=== PATIENT | female | born 2000 | race Caucasian/White ===

== ENCOUNTER 2024-01-11 01:50 | Emergency (ER) | payer OTHER, SELFPAY ==
[2024-01-11 03:00] VITALS: BP 117/77
[2024-01-11 04:00] VITALS: BP 115/74
[2024-01-11 05:00] VITALS: BP 116/74
--- NOTE | 2024-01-11 05:06 | DOWNTIME ---
There was a [employer] Client Parking Supervisor Downtime on 01/11/2024 from 0111 to 01/11/2024 at 0405. Downtime documentation of patient's care, including medication administrations, has been reconciled in the electronic record per guidelines. Refer to the
patient's paper chart under the miscellaneous tab to see printed paper medication records and downtime forms.
--- NOTE | 2024-01-11 05:14 | ED.GENMED ---
History of Present Illness
General
Chief Complaint: Musculo-Skeletal Complaint
Source: patient
Exam Limitations: none
Nursing documentation reviewed up to this point in time: agreed with
History of Present Illness
History of Present Illness:
23-year-old female with no chronic medical issues presents for evaluation of left arm pain radiating to the shoulder and chest. Patient reports onset of symptoms while she was laying in bed tonight has been constant for the past 3-4 hours. She
says symptoms generally improving and almost gone but because of the duration she was concerned that this could be something serious like a heart attack. For this reason she came to the emergency be assessed. She denies any associated symptoms
including shortness of breath, nausea, vomiting, diaphoresis, dizziness. She says she was in her normal state of health prior to onset of symptoms. She says she has never had any similar symptoms in the past including exertional symptoms. She
denies any family history of early cardiac disease. She denies smoking, alcohol, drug use.
Review of Systems
Review of Systems
All Other Systems: ROS reviewed and negative except as documented in HPI and ROS
Constitutional: Denies fever or chills
Respiratory: Denies cough or trouble breathing
Cardiac: Reports chest pain; Denies palpitations
ABD/GI: Denies abdominal pain, nausea, vomiting or diarrhea
: Denies flank pain
Musculoskeletal: Denies neck pain or back pain
Neurological: Denies dizzy or headache
Phy Exam
Physical Exam
Physical Exam:
General: Awake, alert, oriented x3; anxious but no acute distress
Head: Normocephalic, atraumatic
Eyes: Conjunctiva normal, sclera anicteric
Throat: Airway intact, handling secretions
Neck: Trachea midline, supple without meningismus
Lungs: Clear to auscultation bilaterally, no wheezing, rales, rhonchi
Heart: Regular rate and rhythm, no murmurs, gallops, or rubs
Abd: Soft, non distended, nontender
Neuro: Cranial nerves grossly intact, speech fluid
Skin: no rash
Extremities: No edema in extremities, equal pulses in all extremities
Scores
Heart Failure Risk
Heart Failure Risk Score: Not Applicable
Heart Score for Chest Pain Patients
STEMI patient?: No
History: Slightly or Non-Suspicious
ECG: Normal
Age: </= 45 years
Risk Factors: No Risk Factors
Troponin: </= Normal Limit
Heart Score for Chest Pain Patients: 0
Heart Score Risk: 2.5% MACE over next 6 weeks
PERC Rule Criteria
Age <50 years: Yes
HR <100 bpm: Yes
Room air oxygen sat >94%: Yes
History of DVT or PE: No
Recent trauma or surgery: No
Hemoptysis: No
Exogenous estrogen: No
Clinical signs suggestive of DVT: No
: No
Considered low risk for PE: Yes
PERC Score: 0
PE can be excluded by PERC: Yes
Withdrawal Assessment of Alcohol
Withdrawal Assessment Completed?: Not applicable
Course
Orders/Labs/Results
Orders:
Orders
01/11/24
Electrocardiogram (*1) Stat
Reason for Study: Chest Pain
Comment: DONE
01/11/24 02:40
Complete Blood Count/With Diff Routine
Comprehensive Metabolic Panel Routine
HCG, Serum Qualitative Screen Routine
Troponin I Routine
01/11/24 05:07
CR Chest - 2 Views Urgent
Comment:
Reason For Exam: cp
Abnormal Lab Results
01/11/24
02:40
Absolute Neuts (auto) 6.7 H 10^3/uL
(1.4-6.5)
01/11/24 02:40
01/11/24 02:40
MDM/Problems Addressed
Differential Diagnosis Includes:
Costochondritis, cervical radiculopathy, GERD, anxiety; much less likely ACS; clinical picture not all consistent with emergent pathology such as pulmonary embolism or acute aortic syndrome and in my judgment no further testing indicated for these
diagnoses
MDM/Problems Addressed:
23-year-old female presents for evaluation of pain in the left arm radiating to the shoulder and left chest for the past few hours. Started while she was lying in bed and have generally improved almost to the point of resolution. Vital signs
normal here. Physical exam as above. Plan to place an IV check labs including CBC and CMP, troponin, hCG. Will check a chest x-ray. Check an EKG. Monitor closely reassess after the above. Offered Motrin but patient says symptoms have
essentially resolved and declined.
EKG shows no concerning changes, lab work reviewed and CBC and CMP unremarkable, troponin negative x 1 with consistent symptoms for hours this is sufficient to rule out acute [place]. Awaiting results of chest x-ray.
Chest x-ray reviewed by me no acute disease. Patient feeling better no symptoms. Reassuring vitals. Will discharge with primary care follow-up.
*Radiology
Radiology exam reviewed: preliminary read by ED provider
*Pulse Oximetry
Patient hypoxic: no
*EKG
Interpreted by ED Provider?: Yes
Heart Rate: 79
Rate: normal
Rhythm: sinus
Belden: normal axis
Interval: normal interval
QRS Pattern: normal QRS
Ischemia: no ischemia
*Critical Care Note
Total Time (30-74mins, 75-104mins- exclusive of procedures): Not Applicable
Data Reviewed
Source: patient
ED Attending Note
-
Portions of this chart may have been created with voice recognition software.� Occasional wrong word or��sound alike� substitutions may have occurred due to the inherent limitations of voice recognition software.
Discharge Plan
Departure
Patient Disposition: Home (Routine Discharge)
Date of Disposition: 01/11/24
Time of Disposition: 06:10
Patient with high blood pressure during this ER visit?: No
Discharge Problem:
Arm pain, Chest pain
Instructions: Chest Pain PCP Follow Up
Referrals:
Stephanie Arriola MD [Family Provider] - Call in 1-3 days for appt
Activity Restrictions/Additional Instructions:
Thank you for visiting the Emergency Department at [facility].
1. Please schedule a follow up appointment as directed. Call first thing tomorrow morning to make an appointment.
2. If indicated, please take your medications as instructed and indicated on discharge paperwork.
3. If any of your symptoms do not improve, or persist, or become more severe within 6-12 hours, please return to the emergency department for further care.
4. Please return to the emergency department if you develop a headache, neck pain/stiffness, fever greater than 100.4F, chest pain, shortness of breath, persistent nausea, vomiting, slurred speech, difficulty walking, numbness/tingling, weakness,
signs of infection or any other symptoms that are worrisome to you.
Please call [phone] if you have any questions.
[2024-01-11 05:21] LABS: % Basophils 0.4 % (0-2); % Eosinophils 0.9 % (0-6); % Immature Granulocytes 0.3 % (0-0.5); % Lymphocytes 24.8 % (20.5-51.1); % Monocytes 6.1 % (1.7-9.3); % Neutrophils 67.5 % (42.2-75.2); Absolute Eosinophils 0.1 10^3/uL (0-0.7); Absolute Lymphocytes 2.5 10^3/uL (1.2-3.4); Absolute Monocytes 0.6 10^3/uL (0.1-0.6); Absolute Neutrophils 6.7 10^3/uL (1.4-6.5); Hemoglobin 12.9 g/dL (12.0-16.0); Mean Corp Hgb Conc. 33.9 g/dL (33.0-37.0); Mean Corpuscular Volume 82.6 fL (81.0-99.0); Mean Platelet Volume 9.6 fL (7.4-10.4); Nucleated Red Blood Cells % 0 %; Platelet Count 351 10^3/uL (130-400); Red Cell Dist. Width 13.4 % (11.5-14.5)
[2024-01-11 05:26] LABS: ALT (SGPT) 17 U/L (0-35); AST (SGOT) 22 U/L (14-36); Albumin 4.6 g/dl (3.5-5.0); Alkaline Phosphatase 66 U/L (38-126); Blood Urea Nitrogen 13 mg/dl (7-17); Calcium 9.3 mg/dl (8.4-10.2); Carbon Dioxide 23 mmol/L (22-30); Chloride 106 mmol/L (98-107); Glucose 93 mg/dl (70-99); Potassium 3.8 mmol/L (3.5-5.1); Sodium 137 mmol/L (135-145); Total Bilirubin 0.5 mg/dl (0.2-1.3); Total Protein 7.1 g/dl (6.3-8.2); Troponin I < 0.012 ng/ml; eGFR > 60.00
[2024-01-11 05:27] LABS: HCG, Serum Qualitative Screen Negative
== END 2024-01-11 06:28 | disposition home or self-care (01) ==
LOC: EMR 01:50
PROVIDERS: EMERGENCY PHYSICIAN Emergency Medicine; FAMILY PHYSICIAN Emergency Medicine
DX: R07.89 Other chest pain (principal); M79.602 Pain in left arm
CPT/HCPCS: 99285; 71046; 80053; 84484; 84703; 85025; 93005

== ENCOUNTER 2024-03-20 23:03 | Emergency (ER) | payer OTHER, SELFPAY ==
[2024-03-20 23:07] VITALS: BP 135/89
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
[2024-03-20 23:49] LABS: % Basophils 0.4 % (0-2); % Eosinophils 0.8 % (0-6); % Immature Granulocytes 0.4 % (0-0.5); % Lymphocytes 26.7 % (20.5-51.1); % Monocytes 6.2 % (1.7-9.3); % Neutrophils 65.5 % (42.2-75.2); Absolute Eosinophils 0.1 10^3/uL (0-0.7); Absolute Lymphocytes 2.7 10^3/uL (1.2-3.4); Absolute Monocytes 0.6 10^3/uL (0.1-0.6); Absolute Neutrophils 6.7 10^3/uL (1.4-6.5); Hematocrit 36.4 % (37.0-47.0); Hemoglobin 12.2 g/dL (12.0-16.0); Mean Corp Hgb Conc. 33.5 g/dL (33.0-37.0); Mean Corpuscular Hgb 27.2 pg (27.0-31.0); Mean Corpuscular Volume 81.3 fL (81.0-99.0); Mean Platelet Volume 9.3 fL (7.4-10.4); Nucleated Red Blood Cells % 0 %; Platelet Count 362 10^3/uL (130-400); Red Blood Cell Count 4.48 10^6/uL (4.20-5.40); Red Cell Dist. Width 13.8 % (11.5-14.5); White Blood Cell Count 10.2 10^3/uL (4.8-10.8)
[2024-03-21 00:01] LABS: HCG, Serum Qualitative Screen Negative
[2024-03-21 00:10] LABS: Blood Urea Nitrogen 14 mg/dl (7-17); Calcium 9.3 mg/dl (8.4-10.2); Carbon Dioxide 23 mmol/L (22-30); Chloride 105 mmol/L (98-107); Glucose 126 mg/dl (70-99); Potassium 3.7 mmol/L (3.5-5.1); Sodium 134 mmol/L (135-145); eGFR > 60.00
[2024-03-21 00:16] LABS: Alcohol None Detected
[2024-03-21 00:27] LABS: Amphetamines Negative (Negative); Barbiturates Negative (Negative); Benzodiazepines Negative (Negative); Buprenorphine Negative (Negative); Cocaine Negative (Negative); Marijuana Negative (Negative); Methadone Negative (Negative); Methamphetamines Negative (Negative); Opiates Negative (Negative); Phencyclidine Negative (Negative); Tricyclic Antidepressants Negative (Negative)
== END 2024-03-21 00:51 ==
LOC: EMR 23:03
PROVIDERS: Student in an Organized Health Care Education/Training Program; EMERGENCY PHYSICIAN Student in an Organized Health Care Education/Training Program
DX: F32.A Depression, unspecified (principal); R45.851 Suicidal ideations
CPT/HCPCS: 99285; 80048; 80306; 82077; 84703; 85025

== ENCOUNTER 2025-02-26 12:23 | Emergency (ER) | payer OTHER, SELFPAY ==
[2025-02-26 12:26] VITALS: BP 146/87
[2025-02-26 13:01] VITALS: BMI 49.4
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
[2025-02-26 13:16] LABS: % Basophils 0.3 % (0-2); % Eosinophils 0.3 % (0-6); % Immature Granulocytes 0.2 % (0-0.5); % Lymphocytes 21.7 % (20.5-51.1); % Monocytes 4.4 % (1.7-9.3); % Neutrophils 73.1 % (42.2-75.2); Absolute Lymphocytes 2.1 10^3/uL (1.2-3.4); Absolute Monocytes 0.4 10^3/uL (0.1-0.6); Hematocrit 37.5 % (37.0-47.0); Hemoglobin 12.3 g/dL (12.0-16.0); Mean Corp Hgb Conc. 32.8 g/dL (33.0-37.0); Mean Corpuscular Hgb 27.3 pg (27.0-31.0); Mean Corpuscular Volume 83.1 fL (81.0-99.0); Mean Platelet Volume 9.5 fL (7.4-10.4); Nucleated Red Blood Cells % 0 %; Platelet Count 350 10^3/uL (130-400); Red Blood Cell Count 4.51 10^6/uL (4.20-5.40); Red Cell Dist. Width 13.6 % (11.5-14.5); White Blood Cell Count 9.6 10^3/uL (4.8-10.8)
[2025-02-26 13:27] LABS: ALT (SGPT) 15 U/L (0-35); AST (SGOT) 17 U/L (14-36); Acetaminophen < 10 ug/ml (10-30); Albumin 4.2 g/dl (3.5-5.0); Alkaline Phosphatase 81 U/L (38-126); Blood Urea Nitrogen 8 mg/dl (7-17); Calcium 9.8 mg/dl (8.4-10.2); Carbon Dioxide 28 mmol/L (22-30); Chloride 106 mmol/L (98-107); Estimated Creatinine Clearance > 125 ml/min; Glucose 93 mg/dl (70-99); Potassium 3.9 mmol/L (3.5-5.1); Salicylate < 1.0 mg/dl (2.0-20.0); Sodium 141 mmol/L (135-145); Total Bilirubin 0.6 mg/dl (0.2-1.3); Total Protein 6.9 g/dl (6.3-8.2); eGFR > 60.00
[2025-02-26 13:29] LABS: Alcohol None Detected
[2025-02-26 14:12] LABS: Amphetamines Negative (Negative); Barbiturates Negative (Negative); Benzodiazepines Negative (Negative); Buprenorphine Negative (Negative); Cocaine Negative (Negative); Marijuana Negative (Negative); Methadone Negative (Negative); Methamphetamines Negative (Negative); Opiates Negative (Negative); Phencyclidine Negative (Negative); Tricyclic Antidepressants Negative (Negative)
[2025-02-26 17:47] LABS: HCG, Serum Qualitative Screen Negative
[2025-02-26 23:46] VITALS: BP 132/80
== END 2025-02-26 23:47 ==
LOC: EMR 12:23
PROVIDERS: Emergency Medicine; EMERGENCY PHYSICIAN Emergency Medicine; FAMILY PHYSICIAN Emergency Medicine
DX: R45.851 Suicidal ideations (principal); F25.1 Schizoaffective disorder, depressive type
CPT/HCPCS: 99285; 80053; 80143; 80179; 80306; 82077; 84703; 85025

== ENCOUNTER 2025-09-24 12:41 | Emergency (ER) | payer OTHER, SELFPAY ==
[2025-09-24 12:43] VITALS: BP 150/96
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
[2025-09-24 15:00] VITALS: BP 132/84
[2025-09-24 15:25] LABS: HCG, Urine Qualitative Screen Negative
== END 2025-09-25 01:35 ==
LOC: EMR 12:41
PROVIDERS: Registered Nurse; EMERGENCY PHYSICIAN Emergency Medicine
DX: F25.1 Schizoaffective disorder, depressive type (principal); R45.851 Suicidal ideations; Z91.51 Personal history of suicidal behavior
CPT/HCPCS: 99285; 80306; 81025